=== PATIENT | male | born 1995 | race African-American/Black ===

== ENCOUNTER 2016-08-14 20:39 | Emergency (ER) | payer SELFPAY ==
[~2016-08-14] VITALS: Ht 170.2 cm; Wt 78.0 kg
[~2016-08-14 20:39] MED LIST: DIFL150T PO; INSU100V SQ; INSU100V2 SQ
[2016-08-14 20:40] VITALS: BP 134/85; PULSE 89; RESP 16; TEMP 98.2; O2SAT 98
[2016-08-14] MEDS ORDERED: SODIUM CHLOR 0.9% 1000 ML INJ 1,000 ML IV SCH ×2 (21:12→22:26)
[2016-08-14 21:22] VITALS: BP 125/71; PULSE 82; RESP 18; O2SAT 100
[2016-08-14] MEDS ORDERED: INSULIN HUMAN REGULAR 1,000 UNITS/10 ML VIAL SQ ONE ×2 (21:30→22:30)
--- NOTE | 2016-08-14 21:50 | PD ---
HPI Chief Complaint: Diabetic Time Seen by Provider: 21:46 Travel History International Travel<30 days: No Contact w/Intl Traveler<30days: No Traveled to known affect area: No History of Present Illness HPI 20-year-old male that presents to the ED for evaluation of diabetes and running out of medication. Per patient she is currently here for school at college. Per patient he ran out of one of his insulin several 2 weeks ago and he ran out of his last insulin 2 days ago. Per patient he sugars have been high and his been going to the bathroom a lot. Per patient he feels weak and tired but denies any nausea or vomiting. No chest pain or shortness of breath. Per patient he has no PCP in the area he's not been able to get any refills on the medications. He denies any blurry vision or double vision. No fevers chills or sweats. No other medical process. Denies any dysuria. Per patient he only has polyuria and he has had this in the past where he has high blood sugars. Patient's blood sugar here was found to be "critical high ". Nothing seems to make the symptoms better or worse as patient is out of his medications. This has been ongoing for the past couple of days. PFSH Past Medical History Cancer: No Cardiovascular Problems: No Diabetes: Yes (dm1) Patient Takes Glucophage: No Diminished Hearing: No Endocrine: Yes Genitourinary: No Immune Disorder: No Musculoskeletal: No Neurologic: No Psychiatric: No Reproductive: No Respiratory: No Immunizations Current: Yes Thyroid Disease: No Tetanus Vaccination: < 5 Years Influenza Vaccination: No Past Surgical History Surgical History: No Previous Surgery Other Surgery: No Social History Alcohol Use: No Tobacco Use: No Substance Use: No Allergies-Medications (Allergen,Severity, Reaction): Coded Allergies: No Known Allergies (Unverified , 08/14/16) Reported Meds & Prescriptions Reported Meds & Active Scripts Active Humulin R Inj (Insulin Human Regular) 1,000 Unit/10 Ml Vial 5-25 Units SQ ACHS Max dose at bedtime:( )units; sugars < 70,(0)units; sugars 150-199,(5)units; sugars 200-249,(10)units; sugars 250-299,(15)units; sugars 300-349,(20)units; sugars more than 349,(25)units. Humalog Mix 75-25 Inj (Insulin Lispro Protam/Lispro Human) 1,000 Unit/10 Ml Susp 50 Units SQ BID Review of Systems General / Constitutional: No: Fever, Chills, Weight Gain, Weight Loss, Other Eyes: No: Diploplia, Blurred Vision, Photophobia, Drainage, Redness, Foreign Body Sensation, Pain, Tearing, Blind Spots, Visual changes, Blindness, Other HENT: No: Headaches, Vertigo, Lightheadedness, Sore Throat, Rhinitis, Rhinorrhea, Congestion, Nosebleed, Neck Stiffness, Neck Pain, Masses, Gingival Bleeding, Dental Difficulties, Ear Discharge, Earache, Other Cardiovascular: No: Chest Pain or Discomfort, Palpitations, Irregular Rhythm, Tachycardia, Diaphoresis, Syncope, Dyspnea on exertion, Varicosities, Edema, Cyanosis, Varicosities, Phlebitis, Claudication, Other Respiratory: No: Cough, Shortness of Breath, Wheezing, Sneezing, Orthopnea, Hemoptysis, Stridor, Night Sweats, Pleuritic Pain, Other Gastrointestinal: No: Nausea, Vomiting, Diarrhea, Abdominal Pain, Hematemesis, Hematochezia, Constipation, Changes in Bowel Habits, Indigestion, Dysphagia, Loss of Appetite, Other Genitourinary: Positive: Urgency, Frequency, No: Dysuria, Nocturia, Hematuria , Decreased Urinary Output, Oliguria, Hesitancy, Dribbling, Incontinence, Pelvic Pain, Flank Pain, Dyspareunia, Discharge, Dysmenorrhea, Menorrhagia, Metorrhagia, Vaginal Bleeding, Other Musculoskeletal: No: Myalgias, Arthralgias, Limited ROM, Weakness, Cramping, Edema, Pain, Atrophy, Other Skin: No Rash, No Itching, No Dryness, No Lumps, No Hives, No Change in Pigmentation, No Change in nails, No Alopecia, No Lesions, No Breast Lumps, No Breast Tenderness, No Breast Swelling, No Other Neurologic: No: Weakness, Dizziness, Syncope, Focal Abnormalities, Coordination Problem, Tremor, Ataxia, Headache, Change in Mentation, Slurred Speech, Paresthesia, Incontinence, Seizures, Sensory Disturbance, Other Psychiatric: No: Anxiety, Depression, Suicidal Ideations, Disorder of Thought, Mood Disorder, Substance Abuse, Homicidal Ideation, Other Endocrine: Positive: Polyuria, No: Heat Intolerance, Cold Intolerance, Polydipsia, Other Hematologic/Lymphatic: No: Easy Bruising, Lymph Node Enlargement, Other Physical Exam Narrative GENERAL: SKIN: Warm and dry. HEAD: Atraumatic. Normocephalic. EYES: Pupils equal and round. No scleral icterus. No injection or drainage. ENT: No nasal bleeding or discharge. Mucous membranes pink and moist. Tongue is midline. No uvula deviation. NECK: Trachea midline. No JVD. CARDIOVASCULAR: Regular rate and rhythm. No murmurs, S3, S4. RESPIRATORY: No accessory muscle use. Clear to auscultation. Breath sounds equal bilaterally. GASTROINTESTINAL: Abdomen soft, non-tender, nondistended. Hepatic and splenic margins not palpable. MUSCULOSKELETAL: Extremities without clubbing, cyanosis, or edema. No obvious deformities. Full range of motion of the upper and lower extremities bilaterally. 2+ pulses bilaterally. NEUROLOGICAL: Awake and alert. No obvious cranial nerve deficits. Motor grossly within normal limits. Five out of 5 muscle strength in the arms and legs. Normal speech. PSYCHIATRIC: Appropriate mood and affect; insight and judgment normal. Data Data Last Documented VS Vital Signs Date Time Temp Pulse Resp B/P Pulse Ox O2 Delivery O2 Flow Rate FiO2 08/14/16 22:34 83 18 119/73 100 Room Air 08/14/16 20:40 98.2 Orders Complete Blood Count With Diff (08/14/16 21:12) Basic Metabolic Panel (Bmp) (08/14/16 21:12) Magnesium (Mg) (08/14/16 21:12) Blood Glucose (08/14/16 21:12) Iv Access Insert/Monitor (08/14/16 21:12) Sodium Chlor 0.9% 1000 Ml Inj (Ns 1000 M (08/14/16 21:12) Insulin Human Regular Inj (Novolin R Inj (08/14/16 21:30) Blood Gas Venous (Vbg) (08/14/16 22:01) Beta Hydroxybutyrate (Acetone) (08/14/16 22:01) Sodium Chlor 0.9% 1000 Ml Inj (Ns 1000 M (08/14/16 22:26) Insulin Human Regular Inj (Novolin R Inj (08/14/16 22:30) Labs Laboratory Tests Test 08/14/16 21:43 White Blood Count 9.0 TH/MM3 Red Blood Count 4.83 MIL/MM3 Hemoglobin 14.1 GM/DL Hematocrit 41.4 % Mean Corpuscular Volume 85.6 FL Mean Corpuscular Hemoglobin 29.3 PG Mean Corpuscular Hemoglobin 34.2 % Concent Red Cell Distribution Width 12.7 % Platelet Count 228 TH/MM3 Mean Platelet Volume 10.2 FL Neutrophils (%) (Auto) 52.7 % Lymphocytes (%) (Auto) 37.4 % Monocytes (%) (Auto) 8.8 % Eosinophils (%) (Auto) 0.8 % Basophils (%) (Auto) 0.3 % Neutrophils # (Auto) 4.7 TH/MM3 Lymphocytes # (Auto) 3.4 TH/MM3 Monocytes # (Auto) 0.8 TH/MM3 Eosinophils # (Auto) 0.1 TH/MM3 Basophils # (Auto) 0.0 TH/MM3 CBC Comment DIFF FINAL Differential Comment Sodium Level 132 MEQ/L Potassium Level 4.1 MEQ/L Chloride Level 95 MEQ/L Carbon Dioxide Level 28.8 MEQ/L Anion Gap 8 MEQ/L Blood Urea Nitrogen 14 MG/DL Creatinine 0.92 MG/DL Estimat Glomerular Filtration 127 ML/MIN Rate Random Glucose 591 MG/DL Calcium Level 8.8 MG/DL Magnesium Level 1.8 MG/DL B-Hydroxybutyrate 0.64 MMOL/L MDM Medical Decision Making Medical Screen Exam Complete: Yes Emergency Medical Condition: Yes Medical Record Reviewed: Yes Interpretation(s) CBC & BMP Diagram 08/14/16 21:43 Differential Diagnosis DKA versus hyperglycemia versus diabetes Narrative Course 20-year-old male that presents to the ED for evaluation of diabetes and running out of medications. Patient was properly examined and was found to have signs and symptoms consistent appears to be hyperglycemia. Possible DKA still present. Patient was started on IV fluids as well as given 15 units of regular insulin. Labs were drawn. Labs showed hyperglycemia. Case was signed out to my attending pending disposition. Scripts Insulin Human Regular Inj (Humulin R Inj)1,000 Unit/10 Ml Vial5-25 Units SQ ACHS #10 ML Ref 2 Max dose at bedtime:( )units; sugars < 70,(0)units; sugars 150-199,(5)units; sugars 200-249,(10)units; sugars 250-299,(15)units; sugars 300-349,(20)units; sugars more than 349,(25)units. Prov:Lupillo Feliciano MD 08/14/16 Insulin Lispro Protamine-Lispro 75-25 Inj (Humalog Mix 75-25 Inj)1,000 Unit/10 Ml Susp50 Units SQ BID #10 VIAL Ref 2 Prov:Lupillo Feliciano MD 08/14/16 Cesar Reza Aug 14, 2016 21:50
[2016-08-14 22:03] LABS: AUTOMATED NEUTROPHIL # 4.7 TH/MM3 (1.8-7.7); BASOPHIL % 0.3 % (0.0-2.0); EOSINOPHIL # 0.1 TH/MM3 (0-0.4); EOSINOPHIL % 0.8 % (0.0-4.0); HEMATOCRIT 41.4 % (39.0-51.0); HEMO FLAGS DIFF FINAL; LYMPH % 37.4 % (9.0-44.0); LYMPHOCYTE # 3.4 TH/MM3 (1.0-4.8); MEAN CELL VOLUME 85.6 FL (80.0-100.0); MEAN CORPUSCULAR HEMOGLOBIN 29.3 PG (27.0-34.0); MEAN CORPUSCULAR HGB CONC 34.2 % (32.0-36.0); MONO % 8.8 % (0.0-8.0); NEUT % 52.7 % (16.0-70.0); PLATELET COUNT 228 TH/MM3 (150-450); RED BLOOD COUNT 4.83 MIL/MM3 (4.50-5.90); RED CELL DISTRIBUTION WIDTH 12.7 % (11.6-17.2)
[2016-08-14 22:31] LABS: BICARBONATE 28.8 MEQ/L (21.0-32.0); MAGNESIUM 1.8 MG/DL (1.5-2.5); POTASSIUM 4.1 MEQ/L (3.5-5.1)
[2016-08-14 22:34] VITALS: BP 119/73; PULSE 83; RESP 18; O2SAT 100
[2016-08-14] MEDS ORDERED: INSU100V2 SQ (22:57)
[2016-08-14] MEDS ORDERED: INSU100V SQ (22:57)
[2016-08-14] MEDS ORDERED: INSULIN HUMAN REGULAR 1,000 UNITS/10 ML VIAL IVP ONE (23:30)
[2016-08-14 23:36] LABS: BLOOD GAS VENOUS BASE EXCESS -0.8 mmol/L (-2-2); BLOOD GAS VENOUS HCO3 24 mmol/L (22-26); BLOOD GAS VENOUS O2 CONTENT 17.5 Vol % (9.0-17.0); BLOOD GAS VENOUS O2 HGB SAT 93 % (70-76); BLOOD GAS VENOUS PCO2 40 mmHg (44-48); BLOOD GAS VENOUS PO2 68 mmHg (35-40); BLOOD GAS VENOUS pH 7.38 (7.360-7.400); CRITICAL VALUE NO; DRAW SITE CENTRAL LINE; FIO2 21 %; OXYGEN DEVICE ROOMAIR; TEMP CORR TO 98.6
[2016-08-14 23:37] LABS: STAT NO
[2016-08-15 00:04] VITALS: BP 119/90; PULSE 88; RESP 18; TEMP 98.4; O2SAT 100
--- NOTE | 2016-08-15 00:11 | PD ---
Data Data Last Documented VS Vital Signs Date Time Temp Pulse Resp B/P Pulse Ox O2 Delivery O2 Flow Rate FiO2 08/15/16 00:04 98.4 88 18 119/90 100 Room Air Orders Complete Blood Count With Diff (08/14/16 21:12) Basic Metabolic Panel (Bmp) (08/14/16 21:12) Magnesium (Mg) (08/14/16 21:12) Blood Glucose (08/14/16 21:12) Iv Access Insert/Monitor (08/14/16 21:12) Sodium Chlor 0.9% 1000 Ml Inj (Ns 1000 M (08/14/16 21:12) Insulin Human Regular Inj (Novolin R Inj (08/14/16 21:30) Blood Gas Venous (Vbg) (08/14/16 22:01) Beta Hydroxybutyrate (Acetone) (08/14/16 22:01) Sodium Chlor 0.9% 1000 Ml Inj (Ns 1000 M (08/14/16 22:26) Insulin Human Regular Inj (Novolin R Inj (08/14/16 22:30) Insulin Human Regular Inj (Novolin R Inj (08/14/16 23:30) Labs Laboratory Tests Test 08/14/16 08/14/16 21:43 23:30 White Blood Count 9.0 TH/MM3 Red Blood Count 4.83 MIL/MM3 Hemoglobin 14.1 GM/DL Hematocrit 41.4 % Mean Corpuscular Volume 85.6 FL Mean Corpuscular Hemoglobin 29.3 PG Mean Corpuscular Hemoglobin 34.2 % Concent Red Cell Distribution Width 12.7 % Platelet Count 228 TH/MM3 Mean Platelet Volume 10.2 FL Neutrophils (%) (Auto) 52.7 % Lymphocytes (%) (Auto) 37.4 % Monocytes (%) (Auto) 8.8 % Eosinophils (%) (Auto) 0.8 % Basophils (%) (Auto) 0.3 % Neutrophils # (Auto) 4.7 TH/MM3 Lymphocytes # (Auto) 3.4 TH/MM3 Monocytes # (Auto) 0.8 TH/MM3 Eosinophils # (Auto) 0.1 TH/MM3 Basophils # (Auto) 0.0 TH/MM3 CBC Comment DIFF FINAL Differential Comment Sodium Level 132 MEQ/L Potassium Level 4.1 MEQ/L Chloride Level 95 MEQ/L Carbon Dioxide Level 28.8 MEQ/L Anion Gap 8 MEQ/L Blood Urea Nitrogen 14 MG/DL Creatinine 0.92 MG/DL Estimat Glomerular Filtration 127 ML/MIN Rate Random Glucose 591 MG/DL Calcium Level 8.8 MG/DL Magnesium Level 1.8 MG/DL B-Hydroxybutyrate 0.64 MMOL/L Blood Gas Puncture Site CENTRAL LINE Blood Gas Patient Temperature 98.6 Venous Blood pH 7.38 Venous Blood Partial Pressure 40 mmHg CO2 Venous Blood Partial Pressure 68 mmHg O2 Venous Blood HCO3 24 mmol/L Venous Blood Oxygen Saturation 93 % Venous Blood Oxygen Content 17.5 Vol % Venous Blood Base Excess -0.8 mmol/L Oxygen Delivery Device ROOMAIR Blood Gas Inspired Oxygen 21 % MDM Supervised Visit with ALY: Yes Narrative Course I, Dr. Feliciano, have reviewed the advance practice practitioner's documentation and am in agreement, met with the patient face to face, made the diagnosis, and the medical decision making was done by me. See his note for further details. Briefly this is a 20-year-old male who has insulin dependent diabetes who is here for evaluation of elevated blood sugar. The patient reports that he ran out of his insulin. He is not having any physical complaints. No abdominal pain. No nausea or vomiting. No fevers or recent illness. Vital signs are within normal limits. CBC is unremarkable. VBG shows a venous pH of 7.38. BMP shows random glucose 591, sodium 132, chloride 95. Beta hydroxybutyrate is 0.64. The patient is not in DKA. He was given 2 L of normal saline IV and was given enough insulin to lower his blood sugar to the 200s. He is feeling well and feels ready to be discharged home. He reports that he is in the process of trying to find a local primary care physician who can prescribe his insulin. He will be given a prescription for insulin. He was informed on when to return to the emergency dependent. He verbalizes understanding and agreement with plan. Diagnosis Primary Impression: Hyperglycemia Referrals: Primary Care Physician 3 days Additional Instruction: Follow-up with a primary care physician this week. Return to the emergency department for worsening symptoms or any other concerns. Scripts Insulin Human Regular Inj (Humulin R Inj)1,000 Unit/10 Ml Vial5-25 Units SQ ACHS #10 ML Ref 2 Max dose at bedtime:( )units; sugars < 70,(0)units; sugars 150-199,(5)units; sugars 200-249,(10)units; sugars 250-299,(15)units; sugars 300-349,(20)units; sugars more than 349,(25)units. Prov:Lupillo Feliciano MD 08/14/16 Insulin Lispro Protamine-Lispro 75-25 Inj (Humalog Mix 75-25 Inj)1,000 Unit/10 Ml Susp50 Units SQ BID #10 VIAL Ref 2 Prov:Lupillo Feliciano MD 08/14/16 Disposition: 01 DISCHARGE HOME Condition: Stable Lupillo Feliciano MD Aug 15, 2016 00:11
== END 2016-08-15 00:30 | disposition home or self-care (01) ==
LOC: NEPE 20:39
DX: E10.65 Type 1 diabetes mellitus with hyperglycemia (principal); R35.8 Other polyuria; Z79.4 Long term (current) use of insulin
CPT/HCPCS: 80048; 82010; 82805; 83735; 85025; 96361; 96372; 96374; 99283; J1815; J7030

== ENCOUNTER 2017-02-11 16:20 | Emergency (ER) | payer SELFPAY ==
[~2017-02-11] VITALS: Ht 170.2 cm; Wt 77.0 kg
[~2017-02-11 16:20] MED LIST changes: -DIFL150T PO
[2017-02-11 16:22] VITALS: BP 150/82; PULSE 108; RESP 20; TEMP 99.5; O2SAT 98
[2017-02-11 17:18] LABS: BLOOD, URINE NEG (NEG); GLUCOSE,URINE 1000 mg/dL (NEG); KETONE, URINE 80 mg/dL (NEG); NITRITE,URINE NEG (NEG); PH, URINE 5.5 (5.0-8.5); SQUAMOUS EPITHELIAL CELL URINE <1 /hpf (0-5); URINE COLOR LIGHT-YELLOW (YELLW/STRAW)
[2017-02-11 17:20] LABS: COMMENT (UR) CULT NOT INDICATED; CULTURE IF INDICATED CULT NOT INDICATED
[2017-02-11] MEDS ORDERED: SODIUM CHLOR 0.9% 1000 ML INJ 1,000 ML IV ONE ×3 (17:46→19:45)
--- NOTE | 2017-02-11 17:46 | PD ---
HPI Chief Complaint: Complaint Time Seen by Provider: 17:40 Travel History International Travel<30 days: No Contact w/Intl Traveler<30days: No Traveled to known affect area: No History of Present Illness HPI 21-year-old male came to the emergency room for polyuria, polydipsia, yeast infection in his genitalia. His bedside blood glucose was 445. There was a UA done in triage since he was complaining of urinary symptoms. The UA was negative for UTI but had thousand glucose. No history of vomiting or diarrhea. Patient says that he does not have a primary care and ran out of his insulin 3 days ago. Before that he was taking on and off insulin and not very compliant. He did not check his blood sugar today. Patient says that he feels dehydrated. [facility] Past Medical History Narrative Medical List of his past medical, surgical, social and family history was reviewed from the nursing note. Cancer: No Cardiovascular Problems: No Diabetes: Yes Diminished Hearing: No Endocrine: Yes Genitourinary: No Immune Disorder: No Musculoskeletal: No Neurologic: No Psychiatric: No Reproductive: No Respiratory: No Immunizations Current: Yes Thyroid Disease: No Past Surgical History Other Surgery: No Social History Alcohol Use: No Tobacco Use: No Substance Use: No Allergies-Medications (Allergen,Severity, Reaction): Coded Allergies: No Known Allergies (Unverified , 08/14/16) Comments No known drug allergies. Reported Meds & Prescriptions Reported Meds & Active Scripts Active Diflucan (Fluconazole) 100 Mg Tab 100 Mg PO DAILY Humulin R Inj (Insulin Human Regular) 1,000 Unit/10 Ml Vial 5-25 Units SQ ACHS Max dose at bedtime:( )units; sugars < 70,(0)units; sugars 150-199,(5)units; sugars 200-249,(10)units; sugars 250-299,(15)units; sugars 300-349,(20)units; sugars more than 349,(25)units. Humalog Mix 75-25 Inj (Insulin Lispro Protam/Lispro Human) 1,000 Unit/10 Ml Susp 50 Units SQ BID Narrative Medication List of his home medications reviewed from the nursing note. Review of Systems Except as stated in HPI: all other systems reviewed are Neg Physical Exam Narrative GENERAL: Awake, alert, mild used SKIN: Focused skin assessment warm/dry. HEAD: Atraumatic. Normocephalic. EYES: Pupils equal and round. No scleral icterus. No injection or drainage. ENT: No nasal bleeding or discharge. Dry mucous membrane NECK: Trachea midline. No JVD. CARDIOVASCULAR: Regular rate and rhythm. No murmur appreciated. RESPIRATORY: No accessory muscle use. Clear to auscultation. Breath sounds equal bilaterally. GASTROINTESTINAL: Abdomen soft, non-tender, nondistended. Hepatic and splenic margins not palpable. MUSCULOSKELETAL: No obvious deformities. No clubbing. No cyanosis. No edema. NEUROLOGICAL: Awake and alert. No obvious cranial nerve deficits. Motor grossly within normal limits. Normal speech. PSYCHIATRIC: Appropriate mood and affect; insight and judgment normal. Data Data Last Documented VS Orders Orders Urinalysis - C+S If Indicated (02/11/17 16:29) Complete Blood Count With Diff (02/11/17 17:46) Comprehensive Metabolic Panel (02/11/17 17:46) Beta Hydroxybutyrate (Acetone) (02/11/17 17:46) Blood Gas Venous (Vbg) (02/11/17 17:46) Blood Glucose (02/11/17 17:46) Ecg Monitoring (02/11/17 17:46) Iv Access Insert/Monitor (02/11/17 17:46) Oximetry (02/11/17 17:46) NPO (02/11/17 17:46) Sodium Chlor 0.9% 1000 Ml Inj (Ns 1000 M (02/11/17 17:46) Sodium Chlor 0.9% 1000 Ml Inj (Ns 1000 M (02/11/17 18:16) Sodium Chloride 0.9% Flush (Ns Flush) (02/11/17 18:00) Insulin Human Regular Inj (Novolin R Inj (02/11/17 18:15) Blood Glucose (02/11/17 18:04) Sodium Chlor 0.9% 1000 Ml Inj (Ns 1000 M (02/11/17 19:45) Blood Glucose (02/11/17 20:06) Labs Laboratory Tests Test 02/11/17 16:37 02/11/17 17:53 02/11/17 18:06 Urine Color LIGHT-YELLOW Urine Turbidity CLEAR Urine pH 5.5 Urine Specific Perry 1.035 Urine Protein NEG mg/dL Urine Glucose (UA) 1000 mg/dL Urine Ketones 80 mg/dL Urine Occult Blood NEG Urine Nitrite NEG Urine Bilirubin NEG Urine Urobilinogen LESS THAN 2.0 MG/DL Urine Leukocyte Esterase NEG Urine WBC 1 /hpf Urine Squamous Epithelial Cells <1 /hpf Microscopic Urinalysis Comment CULT NOT INDICATED Blood Gas Puncture Site I.V. Blood Gas Patient Temperature 98.6 Venous Blood pH 7.37 Venous Blood Partial Pressure CO2 39 mmHg Venous Blood Partial Pressure O2 53 mmHg Venous Blood HCO3 22 mmol/L Venous Blood Oxygen Saturation 85 % Venous Blood Oxygen Content 17.2 Vol % Venous Blood Base Excess -2.8 mmol/L Blood Gas Inspired Oxygen 21 % White Blood Count 10.3 TH/MM3 Red Blood Count 4.65 MIL/MM3 Hemoglobin 13.7 GM/DL Hematocrit 41.0 % Mean Corpuscular Volume 88.1 FL Mean Corpuscular Hemoglobin 29.4 PG Mean Corpuscular Hemoglobin Concent 33.4 % Red Cell Distribution Width 12.6 % Platelet Count 267 TH/MM3 Mean Platelet Volume 9.6 FL Neutrophils (%) (Auto) 64.2 % Lymphocytes (%) (Auto) 25.5 % Monocytes (%) (Auto) 9.3 % Eosinophils (%) (Auto) 0.5 % Basophils (%) (Auto) 0.5 % Neutrophils # (Auto) 6.6 TH/MM3 Lymphocytes # (Auto) 2.6 TH/MM3 Monocytes # (Auto) 1.0 TH/MM3 Eosinophils # (Auto) 0.1 TH/MM3 Basophils # (Auto) 0.0 TH/MM3 CBC Comment DIFF FINAL Differential Comment Blood Urea Nitrogen 11 MG/DL Creatinine 0.77 MG/DL Random Glucose 489 MG/DL Total Protein 7.4 GM/DL Albumin 3.4 GM/DL Calcium Level 8.8 MG/DL Alkaline Phosphatase 227 U/L Aspartate Amino Transf (AST/SGOT) 6 U/L Alanine Aminotransferase (ALT/SGPT) 13 U/L Total Bilirubin 0.4 MG/DL Sodium Level 131 MEQ/L Potassium Level 3.8 MEQ/L Chloride Level 97 MEQ/L Carbon Dioxide Level 24.1 MEQ/L Anion Gap 10 MEQ/L Estimat Glomerular Filtration Rate 155 ML/MIN B-Hydroxybutyrate 2.50 MMOL/L [facility] Medical Decision Making Medical Screen Exam Complete: Yes Emergency Medical Condition: Yes Medical Record Reviewed: Yes Differential Diagnosis DKA, hyperglycemia, electrolyte abnormality, dehydration Narrative Course 9:30 PM patient was given total of 4 L of IV fluid and 10 units of subcutaneous insulin. Eventually has come down to 230. Patient says he feels much better. He did have some ketones in his blood but his pH was within normal limit. I'm comfortable discharging him home. He has been asked to be more compliant with his insulin and also get a primary care. I will give him a pamphlet for [facility]. He will be discharged home on prescriptions. Critical Care Narrative Aggregate critical care time was 45 minutes. Time to perform other separately billable procedures was not included in the critical care time. My time did not include minutes spent treating any other patients simultaneously or on activities that did not directly contribute to the patient's treatment. The services I provided to this patient were to treat and/or prevent clinically significant deterioration that could result in: Dehydration, significant hyperglycemia, 4 L of fluid bolus I provided critical care services requiring my management, as noted below: Chart data review, documentation time, medication orders and management, vital sign assessments/reviewing monitor data, ordering and reviewing lab tests, ordering and interpreting/reviewing x-rays and diagnostic studies, care of the patient and discussion of the patient with the admitting physicians. Procedures EKG Prior to Arrival: No Diagnosis Primary Impression: Hyperglycemia Additional Impressions: Candidiasis Dehydration Noncompliance with medication regimen Referrals: Primary Care Physician Additional Instructions: You He should not stop taking insulin since year insulin-dependent diabetic. This could be dangerous and even fatal. Take the medication as per the prescription direction. Follow-up with her primary care. Return to the ER if the condition worsens or any other new concerns. Med/Other Pt SpecificInfo: Prescription(s) given Scripts Fluconazole (Diflucan) 100 Mg Tab 100 MG PO DAILY for Infection, #1 TAB 0 Refills Prov: Miki Junior MD 02/11/17 Insulin Human Regular Inj (Humulin R Inj) 1,000 Unit/10 Ml Vial 5-25 UNITS SQ ACHS for Blood Sugar Management, #10 ML 2 Refills Max dose at bedtime:( )units; sugars < 70,(0)units; sugars 150-199,(5)units; sugars 200-249,(10)units; sugars 250-299,(15)units; sugars 300-349,(20)units; sugars more than 349,(25)units. Prov: Miki Junior MD 02/11/17 Insulin Lispro Protamine-Lispro 75-25 Inj (Humalog Mix 75-25 Inj) 1,000 Unit/10 Ml Susp 50 UNITS SQ BID for Blood Sugar Management, #10 VIAL 2 Refills Prov: Miki Junior MD 02/11/17 Disposition: 01 DISCHARGE HOME Condition: Stable Miki Junior MD Feb 11, 2017 17:46
[2017-02-11 17:58] VITALS: O2SAT 100
[2017-02-11 18:00] LABS: BLOOD GAS VENOUS BASE EXCESS -2.8 mmol/L (-2-2); BLOOD GAS VENOUS HCO3 22 mmol/L (22-26); BLOOD GAS VENOUS O2 CONTENT 17.2 Vol % (9.0-17.0); BLOOD GAS VENOUS O2 HGB SAT 85 % (70-76); BLOOD GAS VENOUS PCO2 39 mmHg (44-48); BLOOD GAS VENOUS PO2 53 mmHg (35-40); BLOOD GAS VENOUS pH 7.37 (7.360-7.400); CRITICAL VALUE NO; FIO2 21 %; TEMP CORR TO 98.6
[2017-02-11] MEDS ORDERED: SODIUM CHLORIDE 0.9% FLUSH 10 ML FLUSH IVF PRN (18:00)
[2017-02-11 18:01] LABS: DRAW SITE I.V.; STAT YES
[2017-02-11] MEDS ORDERED: INSULIN HUMAN REGULAR 1,000 UNITS/10 ML VIAL SQ ONE (18:15)
[2017-02-11 18:40] LABS: AUTOMATED NEUTROPHIL # 6.6 TH/MM3 (1.8-7.7); BASOPHIL % 0.5 % (0.0-2.0); EOSINOPHIL # 0.1 TH/MM3 (0-0.4); EOSINOPHIL % 0.5 % (0.0-4.0); HEMO FLAGS DIFF FINAL; LYMPH % 25.5 % (9.0-44.0); LYMPHOCYTE # 2.6 TH/MM3 (1.0-4.8); MEAN CELL VOLUME 88.1 FL (80.0-100.0); MEAN CORPUSCULAR HEMOGLOBIN 29.4 PG (27.0-34.0); MEAN CORPUSCULAR HGB CONC 33.4 % (32.0-36.0); MONO % 9.3 % (0.0-8.0); NEUT % 64.2 % (16.0-70.0); PLATELET COUNT 267 TH/MM3 (150-450); RED BLOOD COUNT 4.65 MIL/MM3 (4.50-5.90); RED CELL DISTRIBUTION WIDTH 12.6 % (11.6-17.2); WHITE BLOOD COUNT 10.3 TH/MM3 (4.0-11.0)
[2017-02-11 19:00] LABS: AST (GOT) 6 U/L (15-37); BICARBONATE 24.1 MEQ/L (21.0-32.0); BLOOD UREA NITROGEN 11 MG/DL (7-18); GLOMERULAR FILTRATION RATE 155 ML/MIN (>89)
[2017-02-11 19:53] LABS: ALKALINE PHOSPHATASE 227 U/L (45-117); ALT (GPT) 13 U/L (12-78); ANION GAP 10 MEQ/L (5-15); CHLORIDE 97 MEQ/L (98-107); POTASSIUM 3.8 MEQ/L (3.5-5.1); SODIUM (NA) 131 MEQ/L (136-145); TOTAL BILIRUBIN ADULT 0.4 MG/DL (0.2-1.0)
[2017-02-11] MEDS ORDERED: INSU100V SQ (21:31)
[2017-02-11] MEDS ORDERED: INSU100V2 SQ (21:31)
[2017-02-11] MEDS ORDERED: DIFL100T PO (21:32)
== END 2017-02-11 21:51 | disposition home or self-care (01) ==
LOC: NEPD 16:20
DX: E11.65 Type 2 diabetes mellitus with hyperglycemia (principal); B37.9 Candidiasis, unspecified; E86.0 Dehydration; Z91.14 Patient's other noncompliance with medication regimen
CPT/HCPCS: 80053; 81001; 82010; 82805; 85025; 96360; 96372; 99291; J1815; J7030

== ENCOUNTER 2017-08-24 19:10 | Emergency (ER) | payer SELFPAY ==
[~2017-08-24 19:10] MED LIST changes: +DIFL100T PO
[2017-08-24 19:30] VITALS: BP 138/90; PULSE 109; RESP 18; TEMP 98.5; O2SAT 98
[2017-08-24 21:55] LABS: AUTOMATED NEUTROPHIL # 6.5 TH/MM3 (1.8-7.7); BASOPHIL % 0.4 % (0.0-2.0); EOSINOPHIL # 0.1 TH/MM3 (0-0.4); EOSINOPHIL % 0.6 % (0.0-4.0); HEMATOCRIT 46.2 % (39.0-51.0); HEMOGLOBIN 15.2 GM/DL (13.0-17.0); LYMPH % 31.9 % (9.0-44.0); LYMPHOCYTE # 3.5 TH/MM3 (1.0-4.8); MEAN CORPUSCULAR HEMOGLOBIN 28.9 PG (27.0-34.0); MEAN CORPUSCULAR HGB CONC 32.8 % (32.0-36.0); MEAN PLATELET VOLUME 9.3 FL (7.0-11.0); MONO % 7.9 % (0.0-8.0); MONOCYTE # 0.9 TH/MM3 (0-0.9); NEUT % 59.2 % (16.0-70.0); PLATELET COUNT 288 TH/MM3 (150-450); RED BLOOD COUNT 5.25 MIL/MM3 (4.50-5.90); RED CELL DISTRIBUTION WIDTH 12.5 % (11.6-17.2)
[2017-08-24 21:58] LABS: BILIRUBIN, URINE NEG (NEG); BLOOD, URINE NEG (NEG); GLUCOSE,URINE 1000 mg/dL (NEG); KETONE, URINE 10 mg/dL (NEG); NITRITE,URINE NEG (NEG); PH, URINE 5.5 (5.0-8.5); SQUAMOUS EPITHELIAL CELL URINE 1 /hpf (0-5); URINE COLOR LIGHT-YELLOW (YELLW/STRAW); URINE LEUKOCYTE ESTERASE NEG (NEG)
--- NOTE | 2017-08-24 22:22 | PD ---
HPI Chief Complaint: Diabetic Time Seen by Provider: 22:21 Travel History International Travel<30 days: No Contact w/Intl Traveler<30days: No Traveled to known affect area: No History of Present Illness HPI 21-year-old male came to the emergency room with history of polyuria and polydipsia for past couple days. Patient is a type 1 diabetes but ran out of his insulin 5 days ago. His blood sugar was checked in triage and the machine read high. Patient denies any nausea or vomiting. Patient denies any fever or chills. He is awake and answering questions appropriately. Vital signs are stable. Patient does not have a primary care physician and hence was unable to get a refill prescription. [facility] Past Medical History Narrative Medical List of his past medical, surgical, social and family history is reviewed from the nursing note. Cancer: No Cardiovascular Problems: No Diabetes: Yes Diminished Hearing: No Endocrine: Yes Genitourinary: No Immune Disorder: No Musculoskeletal: No Neurologic: No Psychiatric: No Reproductive: No Respiratory: No Immunizations Current: Yes Thyroid Disease: No Past Surgical History Other Surgery: No Social History Alcohol Use: No Tobacco Use: No Substance Use: No Allergies-Medications (Allergen,Severity, Reaction): Coded Allergies: No Known Allergies (Unverified , 08/14/16) Comments No known drug allergies. Reported Meds & Prescriptions Reported Meds & Active Scripts Active Humalog Mix 75-25 Inj (Insulin Lispro Protam/Lispro Human) 1,000 Unit/10 Ml Susp 50 Units SQ BID Humulin R Inj (Insulin Human Regular) 1,000 Unit/10 Ml Vial 5-25 Units SQ ACHS Max dose at bedtime:( )units; sugars < 70,(0)units; sugars 150-199,(5)units; sugars 200-249,(10)units; sugars 250-299,(15)units; sugars 300-349,(20)units; sugars more than 349,(25)units. Reported Humulin 70-30 Inj (Insulin NPH Isophane-Reg (Human) 70-30 Inj) 1,000 Unit/10 Ml Vial 20 SQ DAILY Humalog Inj (Insulin Human Lispro) 1,000 Unit/10 Ml Vial 30 Units SQ BID Narrative Medication List of his home medications reviewed from the nursing note. Review of Systems Except as stated in HPI: all other systems reviewed are Neg Endocrine: Positive: Polyuria, Polydipsia Physical Exam Narrative GENERAL: Awake, alert, no obvious distress SKIN: Focused skin assessment warm/dry. HEAD: Atraumatic. Normocephalic. EYES: Pupils equal and round. No scleral icterus. No injection or drainage. ENT: No nasal bleeding or discharge. Dry mucous membrane. NECK: Trachea midline. No JVD. CARDIOVASCULAR: Regular rate and rhythm. No murmur appreciated. RESPIRATORY: No accessory muscle use. Clear to auscultation. Breath sounds equal bilaterally. GASTROINTESTINAL: Abdomen soft, non-tender, nondistended. Hepatic and splenic margins not palpable. MUSCULOSKELETAL: No obvious deformities. No clubbing. No cyanosis. No edema. NEUROLOGICAL: Awake and alert. No obvious cranial nerve deficits. Motor grossly within normal limits. Normal speech. PSYCHIATRIC: Appropriate mood and affect; insight and judgment normal. Data Data Last Documented VS Vital Signs Date Time Temp Pulse Resp B/P (MAP) Pulse Ox O2 Delivery O2 Flow Rate FiO2 08/25/17 02:01 08/25/17 01:23 90 18 100 Room Air 08/24/17 22:32 98.8 Orders Orders Complete Blood Count With Diff (08/24/17 19:31) Comprehensive Metabolic Panel (08/24/17 19:31) Urinalysis - C+S If Indicated (08/24/17 19:31) Beta Hydroxybutyrate (Acetone) (08/24/17 19:31) Blood Glucose (08/24/17 19:31) Blood Gas Venous (Vbg) (08/24/17 22:29) Insulin Human Regular Inj (Novolin R Inj (08/24/17 22:30) Sodium Chlor 0.9% 1000 Ml Inj (Ns 1000 M (08/24/17 22:30) Sodium Chlor 0.9% 1000 Ml Inj (Ns 1000 M (08/24/17 22:30) Sodium Chlor 0.9% 1000 Ml Inj (Ns 1000 M (08/24/17 23:00) Insulin Human Regular Inj (Novolin R Inj (08/25/17 00:00) Ed Discharge Order (08/25/17 01:43) Labs Laboratory Tests Test 08/24/17 21:25 08/24/17 22:37 White Blood Count 11.0 TH/MM3 Red Blood Count 5.25 MIL/MM3 Hemoglobin 15.2 GM/DL Hematocrit 46.2 % Mean Corpuscular Volume 88.0 FL Mean Corpuscular Hemoglobin 28.9 PG Mean Corpuscular Hemoglobin Concent 32.8 % Red Cell Distribution Width 12.5 % Platelet Count 288 TH/MM3 Mean Platelet Volume 9.3 FL Neutrophils (%) (Auto) 59.2 % Lymphocytes (%) (Auto) 31.9 % Monocytes (%) (Auto) 7.9 % Eosinophils (%) (Auto) 0.6 % Basophils (%) (Auto) 0.4 % Neutrophils # (Auto) 6.5 TH/MM3 Lymphocytes # (Auto) 3.5 TH/MM3 Monocytes # (Auto) 0.9 TH/MM3 Eosinophils # (Auto) 0.1 TH/MM3 Basophils # (Auto) 0.0 TH/MM3 CBC Comment DIFF FINAL Differential Comment Urine Color LIGHT-YELLOW Urine Turbidity CLEAR Urine pH 5.5 Urine Specific [place] 1.036 Urine Protein NEG mg/dL Urine Glucose (UA) 1000 mg/dL Urine Ketones 10 mg/dL Urine Occult Blood NEG Urine Nitrite NEG Urine Bilirubin NEG Urine Urobilinogen LESS THAN 2.0 MG/DL Urine Leukocyte Esterase NEG Urine RBC LESS THAN 1 /hpf Urine WBC LESS THAN 1 /hpf Urine Squamous Epithelial Cells 1 /hpf Microscopic Urinalysis Comment CULT NOT INDICATED Blood Urea Nitrogen 14 MG/DL Creatinine 1.19 MG/DL Random Glucose 742 MG/DL Total Protein 8.3 GM/DL Albumin 3.5 GM/DL Calcium Level 9.2 MG/DL Alkaline Phosphatase 209 U/L Aspartate Amino Transf (AST/SGOT) 12 U/L Alanine Aminotransferase (ALT/SGPT) 15 U/L Total Bilirubin 0.4 MG/DL Sodium Level 128 MEQ/L Potassium Level 4.3 MEQ/L Chloride Level 89 MEQ/L Carbon Dioxide Level 27.3 MEQ/L Anion Gap 12 MEQ/L Estimat Glomerular Filtration Rate 94 ML/MIN B-Hydroxybutyrate 0.38 MMOL/L Blood Gas Puncture Site IV Blood Gas Patient Temperature 98.6 Venous Blood pH 7.39 Venous Blood Partial Pressure CO2 48 mmHg Venous Blood Partial Pressure O2 37 mmHg Venous Blood HCO3 29 mmol/L Venous Blood Oxygen Saturation 72 % Venous Blood Oxygen Content 13.7 Vol % Venous Blood Base Excess 4.0 mmol/L MDM Medical Decision Making Medical Screen Exam Complete: Yes Emergency Medical Condition: Yes Medical Record Reviewed: Yes Differential Diagnosis DKA, hyperglycemia Narrative Course 10:40 PM awaiting for the chemistry. I've ordered a VBG and a beta hydroxybutyrate acid. Patient is getting 2 L of IV fluid bolus and 10 units of insulin subcutaneous. 12:07 AM repeat blood sugar is 540. I have ordered for 7 more units of subcutaneous insulin. A repeat Blood sugar will be done at 1:30 AM. 1:40 AM the repeat blood sugar is 363. I'm comfortable discharging the patient home. I'll give him prescription for the insulin. Procedures EKG Prior to Arrival: No Diagnosis Primary Impression: Hyperglycemia Additional Impressions: Dehydration Hx of medication noncompliance Referrals: [facility] 1 week Additional Instructions: Take the medication as per the prescription direction. Return to the ER if condition worsens or any other new concerns. Follow up with the clinic as per the instructions. Scripts Insulin Lispro Protamine-Lispro 75-25 Inj (Humalog Mix 75-25 Inj) 1,000 Unit/10 Ml Susp 50 UNITS SQ BID for Blood Sugar Management, #10 VIAL 2 Refills Prov: Miki Junior MD 08/25/17 Insulin Human Regular Inj (Humulin R Inj) 1,000 Unit/10 Ml Vial 5-25 UNITS SQ ACHS for Blood Sugar Management, #10 ML 2 Refills Max dose at bedtime:( )units; sugars < 70,(0)units; sugars 150-199,(5)units; sugars 200-249,(10)units; sugars 250-299,(15)units; sugars 300-349,(20)units; sugars more than 349,(25)units. Prov: Miki Junior MD 08/25/17 Disposition: 01 DISCHARGE HOME Condition: Stable Miki Junior MD Aug 24, 2017 22:22
[2017-08-24 22:24] LABS: ALBUMIN 3.5 GM/DL (3.4-5.0); ALKALINE PHOSPHATASE 209 U/L (45-117); ALT (GPT) 15 U/L (12-78); AST (GOT) 12 U/L (15-37); BICARBONATE 27.3 MEQ/L (21.0-32.0); BLOOD UREA NITROGEN 14 MG/DL (7-18); CALCIUM 9.2 MG/DL (8.5-10.1); CHLORIDE 89 MEQ/L (98-107); CREATININE 1.19 MG/DL (0.60-1.30); GLOMERULAR FILTRATION RATE 94 ML/MIN (>89); SODIUM (NA) 128 MEQ/L (136-145); TOTAL BILIRUBIN ADULT 0.4 MG/DL (0.2-1.0); TOTAL PROTEIN 8.3 GM/DL (6.4-8.2)
[2017-08-24] MEDS ORDERED: INSULIN HUMAN REGULAR 1,000 UNITS/10 ML VIAL SQ ONE (22:30)
[2017-08-24] MEDS ORDERED: SODIUM CHLOR 0.9% 1000 ML INJ 1,000 ML IV ONE ×3 (22:30→23:00)
[2017-08-24 22:32] VITALS: BP 143/86; PULSE 96; RESP 18; TEMP 98.8; O2SAT 99
[2017-08-24 22:41] LABS: GLUCOSE,RANDOM 742 MG/DL (74-106)
[2017-08-24 23:51] VITALS: BP 141/78; PULSE 96; RESP 18; O2SAT 100
[2017-08-25] MEDS ORDERED: INSULIN HUMAN REGULAR 1,000 UNITS/10 ML VIAL SQ ONE
[2017-08-25] MEDS ORDERED: HUMALOG SQ (01:20)
[2017-08-25] MEDS ORDERED: HUMU70IN SQ (01:20)
[2017-08-25 01:23] VITALS: BP 137/89; PULSE 90; RESP 18; O2SAT 100
[2017-08-25] MEDS ORDERED: INSU100V SQ (01:42)
[2017-08-25] MEDS ORDERED: INSU100V2 SQ (01:42)
== END 2017-08-25 02:00 | disposition home or self-care (01) ==
LOC: NED 19:10 → NEPE 08-25 02:00
DX: E10.65 Type 1 diabetes mellitus with hyperglycemia (principal); E86.0 Dehydration; Z91.14 Patient's other noncompliance with medication regimen; Z79.4 Long term (current) use of insulin
CPT/HCPCS: 80053; 81001; 82010; 82805; 85025; 96360; 96372; 99284; J1815; J7030